=== PATIENT | male | born 1950 | race Caucasian/White ===

== ENCOUNTER 2017-11-29 06:00 | Emergency (ER) | payer OTHER ==
[2017-11-29] MEDS: ONDANSETRON 4 MG INJ IV (07:22)
[2017-11-29] MEDS: morphine 4 MG/ML VIAL IV (07:22)
[2017-11-29] MEDS: SOD CHLORIDE 0.9% 1,000 ML IV (07:22)
[2017-11-29 07:46] LABS: ADD MAN DIFF? NO
[2017-11-29 07:50] LABS: WHITE BLOOD COUNT 11.4 10^3/ul (4.8-10.8)
[2017-11-29 07:50] LABS: BASOPHILS % 0.3 % (0.0-2.0); EOSINOPHILS % 0.4 % (0.0-7.0); HEMATOCRIT 44.6 % (42.0-52.0); HEMOGLOBIN 14.9 g/dl (14.0-18.0); LYMPHOCYTES % 9.1 % (15.0-51.0); MEAN CORPUSCULAR HGB CONC 33.4 g/dl (32.0-37.0); MEAN CORPUSCULAR VOLUME 86.9 fl (82.0-101.0); MEAN PLATELET VOLUME 8.9 fl (7.4-10.4); MONOCYTE # 0.5 10^3/ul (0.3-0.9); NEUTROPHIL # 9.8 10^3/ul (1.6-7.5); NEUTROPHILS % 85.9 % (39.0-77.0); PLATELET COUNT 308 10^3/UL (140-415); RED BLOOD COUNT 5.13 10^6/ul (4.70-6.10)
[2017-11-29 08:10] LABS: ALANINE AMINOTRANSFERASE 33 IU/L (13-69); ALBUMIN 4.7 g/dl (3.3-4.9); ALBUMIN/GLOBULIN RATIO 1.46; ALKALINE PHOSPHATASE 70 IU/L (42-121); ANION GAP 20 (8-16); ASPARTATE AMINO TRANSFERASE 27 IU/L (15-46); BILIRUBIN,INDIRECT 0.8 mg/dl (0-1.1); BILIRUBIN,TOTAL 0.8 mg/dl (0.2-1.3); BLOOD UREA NITROGEN 23 mg/dl (7-20); CARBON DIOXIDE 26 mmol/L (21-31); CHLORIDE 103 mmol/L (97-110); CREATININE 1.17 mg/dl (0.61-1.24); GLUCOSE 116 mg/dl (70-220); LIPASE 135 U/L (23-300); POTASSIUM 3.7 mmol/L (3.5-5.1); SODIUM 145 mmol/L (135-144); TOTAL PROTEIN 7.9 g/dl (6.1-8.1)
[2017-11-29 08:27] LABS: TROPONIN-I < 0.012 ng/ml (0.00-0.12)
[2017-11-29 08:50] LABS: ADD UMIC YES; UR ASCORBIC ACID NEGATIVE (NEGATIVE); UR BILIRUBIN (Dip) NEGATIVE (NEGATIVE); UR BLOOD (Dip) 1+ mg/dL (NEGATIVE); UR CLARITY CLEAR (CLEAR); UR COLOR STRAW (YELLOW); UR GLUCOSE (Dip) NEGATIVE (NEGATIVE); UR KETONES (Dip) NEGATIVE (NEGATIVE); UR LEUKOCYTE ESTERASE (Dip) NEGATIVE Leu/ul (NEGATIVE); UR NITRITE (Dip) NEGATIVE (NEGATIVE); UR RBC 3 /HPF (0-5); UR TOTAL PROTEIN (Dip) NEGATIVE (NEGATIVE); UR UROBILINOGEN (Dip) NEGATIVE (NEGATIVE); UR WBC 1 /HPF (0-5)
== END 2017-11-29 11:09 | disposition home or self-care (01) ==
LOC: E/R 06:00
DX: K80.50 Calculus of bile duct without cholangitis or cholecystitis without obstruction (principal); Z79.82 Long term (current) use of aspirin
CPT/HCPCS: 36415; 76705; 80053; 81001; 83690; 84484; 85025; 93005; 96374; 96375; 99285-25

== ENCOUNTER 2018-03-24 06:24 | Day surgery (SDC) | payer MEDICARE, OTHER ==
[2018-03-24] MEDS: BUPIVACAINE 0.25% (MPF) 30 ML INJ
[2018-03-24] MEDS ORDERED: POLYMYXIN/BACITRACIN 1L IRRIG (06:52)
[2018-03-24] MEDS ORDERED: CEFAZOLIN 2 GM/50 ML (PMX) 50 ML IVPB (07:00)
[2018-03-24] MEDS ORDERED: SOD CHLORIDE 0.9% 1,000 ML IV (07:00)
[2018-03-24] MEDS ORDERED: GLYCOPYRROLATE 1 MG INJ (07:00)
[2018-03-24] MEDS ORDERED: ROCURONIUM 50 MG INJ (08:07)
[2018-03-24] MEDS ORDERED: MIDAZOLAM 1 MG/ML 2 ML INJ (08:07)
[2018-03-24] MEDS ORDERED: PROPOFOL 20 ML (08:07)
[2018-03-24] MEDS ORDERED: FENTAnyl 50 MCG/ML VIAL (08:07)
[2018-03-24] MEDS ORDERED: NEOSTIGMINE 3 MG/3 ML SYRINGE (08:07)
[2018-03-24] MEDS ORDERED: CEFAZOLIN 1 GM INJ (08:07)
[2018-03-24] MEDS ORDERED: BUPIVACAINE 0.25% (MPF) 30 ML INJ (08:08)
[2018-03-24] MEDS ORDERED: DEXAMETHASONE 4 MG/ML 1 ML INJ (08:08)
[2018-03-24] MEDS ORDERED: ONDANSETRON 4 MG INJ (08:08)
[2018-03-24] MEDS ORDERED: TRIMETHOBENZAMIDE 100 MG/ML VIAL IM (09:30)
[2018-03-24] MEDS ORDERED: FENTAnyl 50 MCG/ML VIAL IV ×3 (09:30)
[2018-03-24] MEDS ORDERED: LABETALOL HCL 20MG INJ IV (09:30)
[2018-03-24] MEDS ORDERED: MEPERIDINE 25 MG INJ IV (09:30)
[2018-03-24] MEDS ORDERED: ALBUTEROL 0.083% (NEB) 2.5 MG/3 ML AMP HHN (09:30)
[2018-03-24] MEDS ORDERED: MIDAZOLAM 1 MG/ML 2 ML INJ IV (09:30)
[2018-03-24] MEDS ORDERED: ONDANSETRON 4 MG INJ IV (09:30)
[2018-03-24] MEDS ORDERED: OXYCODONE/ACETAMINOPHEN (5/325) TAB PO ×2 (09:30)
[2018-03-24] MEDS ORDERED: hydrALAzine 20 MG INJ IV (09:30)
[2018-03-24] MEDS ORDERED: IPRATROPIUM (NEB) 0.5 MG/2.5 ML AMP HHN (09:30)
[2018-03-24] MEDS ORDERED: DIPHENHYDRAMINE 50 MG INJ IV (09:30)
[2018-03-24] MEDS ORDERED: HYDROmorphONE 1 MG/5 ML IV SYRINGE IV ×2 (09:30→10:05)
[2018-03-24] MEDS ORDERED: EPHEDrine SULFATE 50 MG/5 ML SYG IV (09:30)
[2018-03-24] MEDS: HYDROmorphONE 1 MG/5 ML IV SYRINGE IV ×2 (10:22→10:30)
[2018-03-24] MEDS: HYDROCODONE/APAP (5/325) TAB PO (11:10)
== END 2018-03-24 11:53 | disposition home or self-care (01) ==
LOC: SDS 06:24
DX: K40.30 Unilateral inguinal hernia, with obstruction, without gangrene, not specified as recurrent (principal); I10 Essential (primary) hypertension; N40.0 Benign prostatic hyperplasia without lower urinary tract symptoms
CPT/HCPCS: 49507

== ENCOUNTER 2018-07-10 10:20 | Inpatient (IN) | payer MEDICARE, OTHER ==
[2018-07-10] MEDS: morphine 4 MG/ML VIAL IV (11:46)
[2018-07-10] MEDS: ONDANSETRON 4 MG INJ IV ×2 (11:46→14:03)
[2018-07-10] MEDS: SOD CHLORIDE 0.9% 1,000 ML IV ×2 (11:46→20:25)
[2018-07-10 12:04] LABS: ADD MAN DIFF? NO
[2018-07-10 12:07] LABS: BASOPHILS % 0.2 % (0.0-2.0); EOSINOPHILS % 0.2 % (0.0-7.0); HEMATOCRIT 43.9 % (42.0-52.0); HEMOGLOBIN 14.8 g/dl (14.0-18.0); LYMPHOCYTES # 0.7 10^3/ul (0.8-2.9); LYMPHOCYTES % 5.4 % (15.0-51.0); MEAN CORPUSCULAR HEMOGLOBIN 29.4 pg (29.0-33.0); MEAN CORPUSCULAR HGB CONC 33.7 g/dl (32.0-37.0); MEAN CORPUSCULAR VOLUME 87.3 fl (82.0-101.0); MEAN PLATELET VOLUME 8.6 fl (7.4-10.4); MONOCYTE # 0.4 10^3/ul (0.3-0.9); MONOCYTES % 3.5 % (0.0-11.0); NEUTROPHIL # 11.3 10^3/ul (1.6-7.5); NEUTROPHILS % 90.1 % (39.0-77.0); PLATELET COUNT 281 10^3/UL (140-415); RED BLOOD COUNT 5.03 10^6/ul (4.70-6.10); RED CELL DISTRIBUTION WIDTH 12.2 % (11.5-14.5)
[2018-07-10 12:07] LABS: WHITE BLOOD COUNT 12.6 10^3/ul (4.8-10.8)
[2018-07-10 12:25] LABS: ALANINE AMINOTRANSFERASE 43 IU/L (13-69); ALBUMIN 4.8 g/dl (3.3-4.9); ALBUMIN/GLOBULIN RATIO 1.77; ALKALINE PHOSPHATASE 80 IU/L (42-121); AMYLASE 195 U/L (11-123); ANION GAP 13 (5-13); ASPARTATE AMINO TRANSFERASE 37 IU/L (15-46); BILIRUBIN,INDIRECT 0.8 mg/dl (0-1.1); BILIRUBIN,TOTAL 0.8 mg/dl (0.2-1.3); BLOOD UREA NITROGEN 18 mg/dl (7-20); CALCIUM 9.5 mg/dl (8.4-10.2); CARBON DIOXIDE 27 mmol/L (21-31); CHLORIDE 100 mmol/L (97-110); CREATININE 1.04 mg/dl (0.61-1.24); Estimated GFR > 60 mL/min (>60); GLUCOSE 118 mg/dl (70-220); LIPASE 86 U/L (23-300); POTASSIUM 4.1 mmol/L (3.5-5.1); SODIUM 140 mmol/L (135-144); TOTAL PROTEIN 7.5 g/dl (6.1-8.1)
[2018-07-10 12:28] LABS: INR 0.87; PARTIAL THROMBOPLASTIN TIME 30.4 Sec (23.0-35.0); PROTIME 11.9 Sec (11.9-14.9); PT RATIO 0.9
[2018-07-10 12:37] LABS: TROPONIN-I < 0.012 ng/ml (0.000-0.120)
[2018-07-10] MEDS: HYDROmorphONE 1 MG/ML SYG IV (14:03)
[2018-07-10] MEDS: PIPER-TAZO 3.375 GM IV (PMX) 100 ML IVPB (14:12)
[2018-07-10] MEDS ORDERED: DOCUSATE SODIUM 100 MG CAP PO (19:30)
[2018-07-10] MEDS ORDERED: morphine 2 MG INJ IV (19:30)
[2018-07-10] MEDS ORDERED: MAGNESIUM HYDROXIDE 30ML CUP PO (19:30)
[2018-07-10] MEDS ORDERED: ZOLPIDEM 5 MG TAB PO (19:30)
[2018-07-10] MEDS ORDERED: ACETAMINOPHEN 325 MG TAB PO (19:30)
[2018-07-10] MEDS ORDERED: ONDANSETRON 4 MG INJ IV (19:30)
[2018-07-10] MEDS ORDERED: NACL 0.9% 3 ML SYG IV (19:30)
[2018-07-10] MEDS: CEFTRIAXONE 1 GM/50 ML (PMX) 50 ML IVPB (20:25)
[2018-07-10] MEDS: AMLODIPINE 10 MG TAB PO (21:17)
[2018-07-10] MEDS: TAMSULOSIN (SR) 0.4 MG CAP PO (21:17)
[2018-07-11 06:29] LABS: ADD MAN DIFF? NO
[2018-07-11 06:41] LABS: BASOPHILS % 0.2 % (0.0-2.0); EOSINOPHILS # 0.1 10^3/ul (0.0-0.5); EOSINOPHILS % 1.2 % (0.0-7.0); HEMATOCRIT 40.3 % (42.0-52.0); HEMOGLOBIN 13.3 g/dl (14.0-18.0); LYMPHOCYTES # 1.7 10^3/ul (0.8-2.9); LYMPHOCYTES % 18.6 % (15.0-51.0); MEAN CORPUSCULAR HEMOGLOBIN 29.2 pg (29.0-33.0); MEAN CORPUSCULAR VOLUME 88.6 fl (82.0-101.0); MONOCYTE # 0.9 10^3/ul (0.3-0.9); NEUTROPHIL # 6.2 10^3/ul (1.6-7.5); NEUTROPHILS % 69.7 % (39.0-77.0); PLATELET COUNT 271 10^3/UL (140-415); RED BLOOD COUNT 4.55 10^6/ul (4.70-6.10); RED CELL DISTRIBUTION WIDTH 12.4 % (11.5-14.5)
[2018-07-11 06:41] LABS: WHITE BLOOD COUNT 8.9 10^3/ul (4.8-10.8)
[2018-07-11 07:05] LABS: ANION GAP 7 (5-13); BLOOD UREA NITROGEN 15 mg/dl (7-20); CALCIUM 8.4 mg/dl (8.4-10.2); CARBON DIOXIDE 29 mmol/L (21-31); CHLORIDE 103 mmol/L (97-110); CREATININE 1.23 mg/dl (0.61-1.24); Estimated GFR 59 mL/min (>60); GLUCOSE 101 mg/dl (70-220); MAGNESIUM 2.1 mg/dl (1.7-2.5); PHOSPHORUS 3.1 mg/dl (2.5-4.9); POTASSIUM 3.6 mmol/L (3.5-5.1); SODIUM 139 mmol/L (135-144)
[2018-07-11 07:49] LABS: HEMOGLOBIN A1C 5.1 % (0-5.9)
[2018-07-11] MEDS: CHOLECALCIFEROL 1,000 UNIT TAB PO (08:25)
[2018-07-11] MEDS: DUTASTERIDE 0.5 MG CAP PO (08:25)
[2018-07-11] MEDS: LISINOPRIL 10 MG TAB PO (08:26)
[2018-07-11] MEDS: INFLUENZA VIRUS VACCINE 0.5 ML (DISPENSING) IM* (08:30)
[2018-07-11] MEDS: SOD CHLORIDE 0.9% 1,000 ML IV ×2 (10:35→23:37)
[2018-07-11] MEDS: CEFTRIAXONE 1 GM/50 ML (PMX) 50 ML IVPB (19:36)
[2018-07-11] MEDS: TAMSULOSIN (SR) 0.4 MG CAP PO (21:46)
[2018-07-11] MEDS: AMLODIPINE 10 MG TAB PO (21:46)
[2018-07-12] MEDS: SOD CHLORIDE 0.9% 1,000 ML IV ×3 (05:28→23:32)
[2018-07-12] MEDS ORDERED: LIDOCAINE 2% (SDV) 5 ML INJ (07:00)
[2018-07-12] MEDS: CHOLECALCIFEROL 1,000 UNIT TAB PO (09:00)
[2018-07-12] MEDS: DUTASTERIDE 0.5 MG CAP PO (09:12)
[2018-07-12] MEDS: LISINOPRIL 10 MG TAB PO (09:12)
[2018-07-12] MEDS ORDERED: HYDROmorphONE 1 MG/5 ML IV SYRINGE IV (11:00)
[2018-07-12] MEDS ORDERED: ALBUTEROL 0.083% (NEB) 2.5 MG/3 ML AMP HHN (11:00)
[2018-07-12] MEDS ORDERED: DIPHENHYDRAMINE 50 MG INJ IV (11:00)
[2018-07-12] MEDS ORDERED: METOCLOPRAMIDE 10 MG INJ IV (11:00)
[2018-07-12] MEDS ORDERED: FENTAnyl 50 MCG/ML VIAL IV (11:00)
[2018-07-12] MEDS ORDERED: PROPOFOL 20 ML (11:29)
[2018-07-12] MEDS ORDERED: ROCURONIUM 50 MG INJ (11:29)
[2018-07-12] MEDS ORDERED: FENTAnyl 50 MCG/ML VIAL (11:29)
[2018-07-12] MEDS ORDERED: SUGAMMADEX SODIUM 200 MG/2 ML VIAL IV (11:29)
[2018-07-12] MEDS ORDERED: SUCCINYLCHOLINE CHLORIDE 100 MG/5 ML SYG IV (11:29)
[2018-07-12] MEDS ORDERED: CEFAZOLIN 1 GM INJ (11:29)
[2018-07-12] MEDS ORDERED: ROPIVACAINE 0.5 % 30 ML VIAL (12:13)
[2018-07-12] MEDS ORDERED: OXYCODONE/ACETAMINOPHEN (5/325) TAB PO ×2 (12:30)
[2018-07-12] MEDS ORDERED: morphine 2 MG INJ IV (12:30)
[2018-07-12] MEDS ORDERED: ONDANSETRON 4 MG INJ IV (12:30)
[2018-07-12] MEDS: MEPERIDINE 25 MG INJ IV (12:40)
[2018-07-12] MEDS: ONDANSETRON 4 MG INJ IV ×2 (12:45→13:30)
[2018-07-12] MEDS: HYDROmorphONE 1 MG/5 ML IV SYRINGE IV ×2 (12:46→12:53)
[2018-07-12] MEDS: FENTAnyl 50 MCG/ML VIAL IV (13:11)
[2018-07-12] MEDS: HYDROmorphONE 1 MG/ML SYG IV (13:31)
[2018-07-12] MEDS: CEFTRIAXONE 1 GM/50 ML (PMX) 50 ML IVPB (19:44)
[2018-07-12] MEDS: TAMSULOSIN (SR) 0.4 MG CAP PO (20:56)
[2018-07-12] MEDS: AMLODIPINE 10 MG TAB PO (20:57)
[2018-07-13] MEDS: HYDROCODONE/APAP (5/325) TAB PO (01:16)
[2018-07-13] MEDS: SOD CHLORIDE 0.9% 1,000 ML IV (04:13)
[2018-07-13 05:56] LABS: ADD MAN DIFF? NO
[2018-07-13 06:00] LABS: WHITE BLOOD COUNT 7.9 10^3/ul (4.8-10.8)
[2018-07-13 06:00] LABS: BASOPHILS % 0.1 % (0.0-2.0); EOSINOPHILS # 0.1 10^3/ul (0.0-0.5); EOSINOPHILS % 1.3 % (0.0-7.0); HEMATOCRIT 36.8 % (42.0-52.0); HEMOGLOBIN 12.1 g/dl (14.0-18.0); LYMPHOCYTES # 1.5 10^3/ul (0.8-2.9); LYMPHOCYTES % 19.2 % (15.0-51.0); MEAN CORPUSCULAR HEMOGLOBIN 29.3 pg (29.0-33.0); MEAN CORPUSCULAR HGB CONC 32.9 g/dl (32.0-37.0); MEAN CORPUSCULAR VOLUME 89.1 fl (82.0-101.0); MEAN PLATELET VOLUME 8.9 fl (7.4-10.4); MONOCYTE # 0.7 10^3/ul (0.3-0.9); MONOCYTES % 9.4 % (0.0-11.0); NEUTROPHIL # 5.5 10^3/ul (1.6-7.5); NEUTROPHILS % 69.6 % (39.0-77.0); PLATELET COUNT 229 10^3/UL (140-415); RED BLOOD COUNT 4.13 10^6/ul (4.70-6.10); RED CELL DISTRIBUTION WIDTH 12.5 % (11.5-14.5)
[2018-07-13 06:12] LABS: HEMOGLOBIN A1C 5.1 % (0-5.9)
[2018-07-13 06:20] LABS: ALANINE AMINOTRANSFERASE 84 IU/L (13-69); ALBUMIN 3.7 g/dl (3.3-4.9); ALBUMIN/GLOBULIN RATIO 1.32; ALKALINE PHOSPHATASE 129 IU/L (42-121); ANION GAP 9 (5-13); ASPARTATE AMINO TRANSFERASE 79 IU/L (15-46); BILIRUBIN,INDIRECT 1.7 mg/dl (0-1.1); BILIRUBIN,TOTAL 1.7 mg/dl (0.2-1.3); BLOOD UREA NITROGEN 10 mg/dl (7-20); CALCIUM 8.4 mg/dl (8.4-10.2); CARBON DIOXIDE 29 mmol/L (21-31); CHLORIDE 104 mmol/L (97-110); Estimated GFR > 60 mL/min (>60); GLUCOSE 112 mg/dl (70-220); POTASSIUM 3.9 mmol/L (3.5-5.1); SODIUM 142 mmol/L (135-144); TOTAL PROTEIN 6.5 g/dl (6.1-8.1)
[2018-07-13 06:25] LABS: CHOLESTEROL 200 mg/dl (100-200)
[2018-07-13 06:25] LABS: CHOL/HDL RATIO 4.6 RATIO; HDL CHOLESTEROL 43 mg/dl (30-78); LDL CHOLESTEROL,CALCULATED 139 mg/dl; TRIGLYCERIDES 91 mg/dl (0-149)
[2018-07-13] MEDS: CHOLECALCIFEROL 1,000 UNIT TAB PO (08:27)
[2018-07-13] MEDS: DUTASTERIDE 0.5 MG CAP PO (08:27)
[2018-07-13] MEDS: LISINOPRIL 10 MG TAB PO (08:27)
== END 2018-07-13 18:45 | disposition home or self-care (01) | DRG 419 ==
LOC: E/R 10:20 → PP2 14:51
PROC: 0FT44ZZ Resection of Gallbladder, Percutaneous Endoscopic Approach (ICD-10-PCS; principal; 2018-07-12 11:00)
DX: K80.00 Calculus of gallbladder with acute cholecystitis without obstruction (principal); I10 Essential (primary) hypertension; N40.0 Benign prostatic hyperplasia without lower urinary tract symptoms; E66.9 Obesity, unspecified; Z68.31 Body mass index [BMI] 31.0-31.9, adult
CPT/HCPCS: 71045; 76705; 80048; 80053; 80061; 82150; 83036; 83690; 83735; 84100; 84484; 85025; 85610; 85730; 88304; 90686; 93005; 96361; 96365; 96375; 96376; 99285-25; G0378

== ENCOUNTER 2018-09-08 07:20 | Day surgery (SDC) | payer MEDICARE, OTHER ==
[~2018-09-08 07:20] MED LIST: CEFAZOLIN 1 GM INJ
[2018-09-08] MEDS ORDERED: METOCLOPRAMIDE 10 MG INJ (08:57)
[2018-09-08] MEDS ORDERED: MIDAZOLAM 1 MG/ML 2 ML INJ (08:57)
[2018-09-08] MEDS ORDERED: ROPIVACAINE 0.2% 20 ML VIAL (08:59)
[2018-09-08] MEDS ORDERED: ROCURONIUM 50 MG INJ (08:59)
[2018-09-08] MEDS ORDERED: PROPOFOL 20 ML (08:59)
[2018-09-08] MEDS ORDERED: HYDROmorphONE 1 MG/5 ML IV SYRINGE IV ×3 (09:00)
[2018-09-08] MEDS ORDERED: MEPERIDINE 25 MG INJ IV (09:00)
[2018-09-08] MEDS ORDERED: OXYCODONE/ACETAMINOPHEN (5/325) TAB PO ×4 (09:00→10:30)
[2018-09-08] MEDS ORDERED: LABETALOL HCL 20MG INJ IV (09:00)
[2018-09-08] MEDS ORDERED: DIPHENHYDRAMINE 50 MG INJ IV (09:00)
[2018-09-08] MEDS ORDERED: hydrALAzine 20 MG INJ IV (09:00)
[2018-09-08] MEDS ORDERED: ONDANSETRON 4 MG INJ IV ×2 (09:00→10:30)
[2018-09-08] MEDS ORDERED: FENTAnyl 50 MCG/ML VIAL (09:03)
[2018-09-08] MEDS ORDERED: EPHEDrine SULFATE 50 MG/5 ML SYG (09:22)
[2018-09-08] MEDS: BUPIVACAINE 0.25% (MPF) 30 ML INJ (09:35)
[2018-09-08] MEDS ORDERED: KETOROLAC 30 MG INJ (09:58)
[2018-09-08] MEDS ORDERED: ONDANSETRON 4 MG INJ (09:58)
[2018-09-08] MEDS ORDERED: morphine 2 MG INJ IV (10:30)
== END 2018-09-08 11:22 | disposition home or self-care (01) ==
LOC: SDS 07:20
DX: K40.90 Unilateral inguinal hernia, without obstruction or gangrene, not specified as recurrent (principal); I10 Essential (primary) hypertension; N40.0 Benign prostatic hyperplasia without lower urinary tract symptoms
CPT/HCPCS: 49505